=== PATIENT | male | born 1940 | race Caucasian/White ===

== ENCOUNTER → 2016-06-25 | Outpatient (CLI) | payer OTHER ==
[~2016-06-25] MED LIST: ASPEC325 PO; ASPI81TA28 PO; BUME1TAB PO; CARB1TAB59 PO; CLOP1TAB15 PO; CYM60 PO; DICL1GEL28 TOP; DVN/160 PO; FLUT1AER5 INH; LAMO150T32 PO; METO25TA3 PO; MIRA1TAB3 PO; MOMLX PO; MRLP17 PO; NMN10 PO; NXM/40 PO; ONDA4TAB46 PO; PRAV20TA PO; QUET1TAB10 PO; RANO500T PO; RIVA1DIS TOP; RXC5 PO; SNK PO; VALS320T2 PO; VNTHFA/IN INH
--- NOTE | 2016-06-25 10:48 | DIAGNOSTIC IMAGING REPORT ---
DOUBLE CONTRAST UPPER GI SERIES AND SMALL BOWEL FOLLOW-THROUGH CLINICAL HISTORY: Nausea and vomiting. Epigastric abdominal pain. COMPARISON STUDY: Abdominal CT dated 06/20/2014. TECHNIQUE: An abdominal station engineer chief radiograph was performed. A standard air contrast upper GI series was then performed. Spot images of the esophagus and stomach were obtained in multiple obliquities with upright and prone. The patient then consumed several of thin barium and a small follow-through was performed. Overhead radiographs and spot compression images were obtained. FINDINGS: The patient swallowed barium without difficulty. The esophagus is structurally normal without evidence of intrinsic or extrinsic mass. Moderate dysmotility is seen in the mid to distal third of the esophagus. The esophageal mucosal pattern is normal. No gastroesophageal reflux was elicited by having the patient performed a Valsalva maneuver. The gastroesophageal junction distends normally. A small hiatal hernia is noted. The configuration of the proximal stomach suggests previous fundoplication. The stomach shows Normal distensibility. No mass or ulceration is identified. There was no evidence of gastritis. The duodenal bulb and sweep are unremarkable. The abdominal station engineer chief radiograph shows a nonobstructed abdominal bowel gas pattern. Cholecystectomy clips are noted. No abnormal abdominal calcifications are seen. The skeletal structures are osteopenic. Lumbar spinal fusion hardware is observed. On the small bowel follow-through, there is normal transit time with contrast identified in the colon at 45 minutes. The small bowel mucosal pattern is normal. There is no evidence of stricture or mass. The distal/terminal ileum are normal in appearance on the spot compression views. Fluoroscopy time: 3.8 minutes. Fluoroscopic images: 34 IMPRESSION: 1. Esophageal dysmotility. 2. Hiatal hernia. 3. Unremarkable small bowel follow-through. Electronically signed by: Geoffrey Turner M.D. 06/25/2016 10:47 AM Dictated Date/Time: 06/25/2016 10:44 AM
== END | disposition home or self-care (01) ==
LOC: C.RAD 09:04
PROVIDERS: ATTEND Internal Medicine
DX: R11.2 Nausea with vomiting, unspecified (principal); R10.13 Epigastric pain; K22.4 Dyskinesia of esophagus; K44.9 Diaphragmatic hernia without obstruction or gangrene

== ENCOUNTER → 2016-11-28 | Day surgery (SDC) | payer OTHER ==
[2016-11-27 09:21] VITALS: BMI 39.0
[~2016-11-28] VITALS: Ht 177.8 cm; Wt 122.3 kg
[~2016-11-28] MED LIST changes: -ASPEC325 PO; -DICL1GEL28 TOP; +LIDOCAINE HCL 2% 2 ML VIAL (20MG/ML) ONE; -MOMLX PO; -MRLP17 PO; +PHENYLEPHRINE 100MCG/ML 5ML SYR ONE; +PROPOFOL IV EMULSION 10 MG/ML 20 ML VIAL IV ONE; -RXC5 PO; -SNK PO; +SODIUM CHLORIDE 0.9% 500ML 500 ML IV ONE; -VALS320T2 PO
[2016-11-28 12:54] VITALS: Ht 177.8 cm; Wt 122.3 kg
--- NOTE | 2016-11-28 13:42 | Endo History and Physical ---
History & Physical Date of Service: Nov 28, 2016. Chief Complaint: SCREENING Referring Physician: DR. ALBERTO History of Present Illness screening colonoscopy Past Medical History Reflux, Blood Dyscrasias, High Cholesterol, Sleep Apnea, Hypertension, Kidney Disease, CVA/TIA, Depression Past Surgical History Hx Cardiac Surgery: Yes (HEART CATHS, STENTS X2) Hx Internal Defibrillator: No Hx Pacemaker: No Hx Abdominal Surgery: Yes (BETZY FUNDOPLICATION) Hx Post-Op Nausea and Vomiting: No Hx Cancer Surgery: Yes (TUMOR REMOVAL AND BIOPSIES) Hx Thoracic Surgery: No Hx Orthopedic: Yes (LUMBAR FUSION, LT/RT TKA) Hx Urinary Tract Surgery: No Family History None Social History Smoking Status: Never Smoker Hx Substance Use: No Hx Alcohol Use: No Allergies Coded Allergies: Metoclopramide (Verified Allergy, Severe, TONGUE SWELLED, 11/28/16) ANGELO Inhibitors (Verified Allergy, Mild, ITCHY RASH, 11/28/16) Amoxicillin (Verified Allergy, Unknown, RASH, 11/28/16) Clavulanic Acid (Verified Allergy, Unknown, RASH, 11/28/16) Meperidine (Verified Allergy, Unknown, RASH, 11/28/16) Hydromorphone (Verified Adverse Reaction, Intermediate, NAUSEA, 11/28/16) NSAIDs (Verified Adverse Reaction, Intermediate, elevated Creatinine level , 11/28/16) Current Medications Reported Home Medications Medications Dose Route/Sig Max Daily Dose Days Date Category Plavix (Clopidogrel Bisulfate) 75 Mg Tab 75 Mg PO QAM 08/13/16 Reported Exelon (Rivastigmine) 13.3 Mg/24 Hr Dis 1 Dose TOP HS 08/13/16 Reported Ranexa (Ranolazine) 500 Mg Tab 1 Tab PO BID 08/13/16 Reported Zofran (Ondansetron HCl) 4 Mg Tab 4 Mg PO Q6H PRN 08/13/16 Reported Toprol-Xl (Metoprolol Succinate) 25 Mg Tabcr 25 Mg PO QAM 08/13/16 Reported Flovent Diskus (Fluticasone Propionate (Inhala) 100 Mcg/Blist Aer 1 Puffs INH BID PRN 08/13/16 Reported Ventolin Hfa (Albuterol) 200 Puffs/72392 Mcg Aers 1 Puff INH HS 08/13/16 Reported Bumex (Bumetanide) 1 Mg Tab 1 Mg PO QAM 08/13/16 Reported Diovan (Valsartan) 160 Mg Tab 160 Mg PO QAM 08/13/16 Reported Aspirin Ec (Aspirin) 81 Mg Tab 81 Mg PO HS 08/13/16 Reported Seroquel (Quetiapine Fumarate) 200 Mg Tab 200 Mg PO HS 05/30/15 Reported Sinemet Cr 50-200 mg (Carbidopa-Levodopa) 1 Tab Tab 1 Tab PO BID 12/31/14 Reported Myrbetriq Er (Mirabegron) 50 Mg Tab 50 Mg PO QAM 12/31/14 Reported Pravachol (Pravastatin Sodium) 20 Mg Tab 20 Mg PO QPM 07/24/12 Reported Namenda (Memantine) 10 Mg Tab 10 Mg PO BID 10/31/11 Reported Cymbalta * (Duloxetine HCl) 60 Mg Cap 60 Mg PO BID 10/31/11 Reported Lamictal (Lamotrigine) 150 Mg Tab 150 Mg PO BID 10/31/11 Reported Nexium (Esomeprazole Magnesium) 40 Mg Capcr 40 Mg PO BID 10/31/11 Reported Vital Signs Weight (Kilograms): 122.27 Height (Feet): 5 Height (Inches): 10 Date Time Temp Pulse Resp B/P (MAP) Pulse Ox O2 Delivery O2 Flow Rate FiO2 11/28/16 13:00 36.6 80 20 134/74 (94) 94 Room Air Physical Exam AAOx3 Nls1s2 Lungs CTA Abd soft NT/ND + BS - CCE Assessment and Plan colonoscopy - hx polyps
--- NOTE | 2016-11-28 14:23 | Discharge Instructions ---
Endoscopy Patient Instructions Date / Procedure(s) Performed Nov 28, 2016. Colonoscopy Allergy Information Coded Allergies: Metoclopramide (Verified Allergy, Severe, TONGUE SWELLED, 11/28/16) ANGELO Inhibitors (Verified Allergy, Mild, ITCHY RASH, 11/28/16) Amoxicillin (Verified Allergy, Unknown, RASH, 11/28/16) Clavulanic Acid (Verified Allergy, Unknown, RASH, 11/28/16) Meperidine (Verified Allergy, Unknown, RASH, 11/28/16) Hydromorphone (Verified Adverse Reaction, Intermediate, NAUSEA, 11/28/16) NSAIDs (Verified Adverse Reaction, Intermediate, elevated Creatinine level , 11/28/16) Discharge Date / Findings Nov 28, 2016. 1) polyp at 20 cm removed 2)ulcer at cecum- bx 30 diverticula/redundant colon Medication Instructions Stopped Medication(s): STOPPED PLAVIX AND ASA Restart Stopped Medication(s): Reported Home Medications Medications Dose Route/Sig Max Daily Dose Days Date Category Plavix (Clopidogrel Bisulfate) 75 Mg Tab 75 Mg PO QAM 08/13/16 Reported Exelon (Rivastigmine) 13.3 Mg/24 Hr Dis 1 Dose TOP HS 08/13/16 Reported Ranexa (Ranolazine) 500 Mg Tab 1 Tab PO BID 08/13/16 Reported Zofran (Ondansetron HCl) 4 Mg Tab 4 Mg PO Q6H PRN 08/13/16 Reported Toprol-Xl (Metoprolol Succinate) 25 Mg Tabcr 25 Mg PO QAM 08/13/16 Reported Flovent Diskus (Fluticasone Propionate (Inhala) 100 Mcg/Blist Aer 1 Puffs INH BID PRN 08/13/16 Reported Ventolin Hfa (Albuterol) 200 Puffs/08459 Mcg Aers 1 Puff INH HS 08/13/16 Reported Bumex (Bumetanide) 1 Mg Tab 1 Mg PO QAM 08/13/16 Reported Diovan (Valsartan) 160 Mg Tab 160 Mg PO QAM 08/13/16 Reported Aspirin Ec (Aspirin) 81 Mg Tab 81 Mg PO HS 08/13/16 Reported Seroquel (Quetiapine Fumarate) 200 Mg Tab 200 Mg PO HS 05/30/15 Reported Sinemet Cr 50-200 mg (Carbidopa-Levodopa) 1 Tab Tab 1 Tab PO BID 12/31/14 Reported Myrbetriq Er (Mirabegron) 50 Mg Tab 50 Mg PO QAM 12/31/14 Reported Pravachol (Pravastatin Sodium) 20 Mg Tab 20 Mg PO QPM 07/24/12 Reported Namenda (Memantine) 10 Mg Tab 10 Mg PO BID 10/31/11 Reported Cymbalta * (Duloxetine HCl) 60 Mg Cap 60 Mg PO BID 10/31/11 Reported Lamictal (Lamotrigine) 150 Mg Tab 150 Mg PO BID 10/31/11 Reported Nexium (Esomeprazole Magnesium) 40 Mg Capcr 40 Mg PO BID 10/31/11 Reported Reported Home Medications Medications Dose Route/Sig Max Daily Dose Days Date Category Plavix (Clopidogrel Bisulfate) 75 Mg Tab 75 Mg PO QAM 08/13/16 Reported Exelon (Rivastigmine) 13.3 Mg/24 Hr Dis 1 Dose TOP HS 08/13/16 Reported Ranexa (Ranolazine) 500 Mg Tab 1 Tab PO BID 08/13/16 Reported Zofran (Ondansetron HCl) 4 Mg Tab 4 Mg PO Q6H PRN 08/13/16 Reported Toprol-Xl (Metoprolol Succinate) 25 Mg Tabcr 25 Mg PO QAM 08/13/16 Reported Flovent Diskus (Fluticasone Propionate (Inhala) 100 Mcg/Blist Aer 1 Puffs INH BID PRN 08/13/16 Reported Ventolin Hfa (Albuterol) 200 Puffs/65261 Mcg Aers 1 Puff INH HS 08/13/16 Reported Bumex (Bumetanide) 1 Mg Tab 1 Mg PO QAM 08/13/16 Reported Diovan (Valsartan) 160 Mg Tab 160 Mg PO QAM 08/13/16 Reported Aspirin Ec (Aspirin) 81 Mg Tab 81 Mg PO HS 08/13/16 Reported Seroquel (Quetiapine Fumarate) 200 Mg Tab 200 Mg PO HS 05/30/15 Reported Sinemet Cr 50-200 mg (Carbidopa-Levodopa) 1 Tab Tab 1 Tab PO BID 12/31/14 Reported Myrbetriq Er (Mirabegron) 50 Mg Tab 50 Mg PO QAM 12/31/14 Reported Pravachol (Pravastatin Sodium) 20 Mg Tab 20 Mg PO QPM 07/24/12 Reported Namenda (Memantine) 10 Mg Tab 10 Mg PO BID 10/31/11 Reported Cymbalta * (Duloxetine HCl) 60 Mg Cap 60 Mg PO BID 10/31/11 Reported Lamictal (Lamotrigine) 150 Mg Tab 150 Mg PO BID 10/31/11 Reported Nexium (Esomeprazole Magnesium) 40 Mg Capcr 40 Mg PO BID 10/31/11 Reported OK to resume meds Provider Instructions Activity Restrictions - No exercising or heavy lifting for 24 hours. - Do not drink alcohol the day of the procedure. - Do not drive a car or operate machinery until the day after the procedure. - Do not make any important decisions or sign important papers in 24 hours after the procedure. Following Day: - Return to full activity which may include returning to work/school. Diet Start your diet with liquids and light foods (jello, soup, juice, toast). Then eat your usual diet if not nauseated. Treatment For Common After Affects For mild abdominal pain, bloating, or excessive gas: - Rest - Eat lightly - Lie on right side Follow-Up Information Follow-up with DR. ALBERTO as scheduled Anesthesia Information What You Should Know You have had a procedure that required some medicine to reduce anxiety and discomfort. This treatment is called moderate sedation. After receiving the treatment, you may be sleepy, but you will be able to breathe on your own. The effects of the treatment may last for several hours. Follow these instructions along with Activity/Diet recommendations noted above: * Do NOT do anything where dizziness or clumsiness would be dangerous. * Rest quietly at home today, then you can be up and about tomorrow. * Have a responsible person stay with you the rest of today. * You may have had an I.V. today. If so, you may take the dressing off later today. Recommendations Call your doctor if: * Trouble breathing * Continuous vomiting for more than 24 hours * Temperature above 101 degrees * Severe abdominal pain or bloating * Pain not relieved by pain medicine ordered * There is increased drainage or redness from any incision * A large amount of rectal bleeding greater than 2-3 tablespoons. (If you had a polyp/s removed or have hemorrhoids, a small amount of blood - from the rectum is to be expected.) * You have any unanswered questions or concerns. IN THE EVENT OF A SERIOUS EMERGENCY, GO TO THE NEAREST EMERGENCY ROOM Your discharge instructions were prepared by provider Abbe Lo. Patient Instructions Signature Page Bryan Martinez Patient (or Guardian) Signature/Date: I have read and understand the instructions given to me by my caregivers. Caregiver/RN/Doctor Signature/Date: The above-named patient and/or guardian has received patient instructions on this date. + Original Patient Signature Page (only) stays with chart. Please make copy for patient.
--- NOTE | 2016-11-28 14:30 | GI REPORT ---
Procedure Date: 11/28/2016 12:53 PM Procedure: Colonoscopy Indications: High risk colon cancer surveillance: Personal history of colonic polyps. No hx IBD; on ASA/Plavix Medicines: Propofol per Anesthesia Complications: No immediate complications. Estimated blood loss: Minimal. Estimated Blood Loss: Estimated blood loss was minimal. Procedure: Pre-Anesthesia Assessment: - Prior to the procedure, a History and Physical was performed, and patient medications and allergies were reviewed. The patient's tolerance of previous anesthesia was also reviewed. The risks and benefits of the procedure and the sedation options and risks were discussed with the patient. All questions were answered, and informed consent was obtained. Prior Anticoagulants: The patient has taken no previous anticoagulant or antiplatelet agents. ASA Grade Assessment: III - A patient with severe systemic disease. After reviewing the risks and benefits, the patient was deemed in satisfactory condition to undergo the procedure. After I obtained informed consent, the scope was passed under direct vision. Throughout the procedure, the patient's blood pressure, pulse, and oxygen saturations were monitored continuously. The scope was introduced through the anus and advanced to the cecum, identified by appendiceal orifice and ileocecal valve. The colonoscopy was performed without difficulty. The patient tolerated the procedure well. The quality of the bowel preparation was good. Findings: The perianal and digital rectal examinations were normal. Pertinent negatives include normal sphincter tone, no palpable rectal lesions and no anal lesion or abnormality was detected. A 6 mm polyp was found in the rectum. The polyp was sessile. The polyp was removed with a cold snare. Resection and retrieval were complete. Verification of patient identification for the specimen was done by the physician and snow technician using the patient's name and medical record number. A continuous area of nonbleeding ulcerated mucosa with no stigmata of recent bleeding was present in the cecum. Biopsies were taken with a cold forceps for histology. Estimated blood loss was minimal. Verification of patient identification for the specimen was done by the physician and snow technician using the patient's name and medical record number. Multiple small-mouthed diverticula were found in the entire colon. The rectum, descending colon and ascending colon appeared normal. Biopsies were taken with a cold forceps for histology. Estimated blood loss was minimal. Verification of patient identification for the specimen was done by the physician and snow technician using the patient's name and medical record number. The retroflexed view of the distal rectum and anal verge was normal and showed no anal or rectal abnormalities. Impression: - One 6 mm polyp in the rectum, removed with a cold snare. Resected and retrieved. - Mucosal ulceration. Biopsied. - Diverticulosis in the entire examined colon. - The rectum, descending colon and ascending colon are normal. Biopsied. - The distal rectum and anal verge are normal on retroflexion view. Recommendation: - Patient has a contact number available for emergencies. The signs and symptoms of potential delayed complications were discussed with the patient. Return to normal activities tomorrow. Written discharge instructions were provided to the patient. - Resume regular diet. - Resume Plavix (clopidogrel) today at prior dose. - No aspirin, ibuprofen, naproxen, or other non-steroidal anti-inflammatory drugs. - Await pathology results. - Repeat colonoscopy for surveillance based on pathology results. - Return to referring physician as previously scheduled. MD Abbe Billy MD 11/28/2016 2:29:53 PM This report has been signed electronically. Note Initiated On: 11/28/2016 12:53 PM I attest to the content of the Intraoperative Record and orders documented therein, exceptions below
--- NOTE | 2016-11-28 14:46 | Anesthesiology Progress Note ---
Anesthesia Post Op Note Date & Time Nov 28, 2016 at 14:46 Vital Signs Pain Intensity: 0 Vital Signs Past 12 Hours Date Time Temp Pulse Resp B/P (MAP) Pulse Ox O2 Delivery O2 Flow Rate FiO2 11/28/16 14:44 73 20 139/79 (99) 99 Room Air 11/28/16 14:29 72 20 120/63 (82) 99 Room Air 11/28/16 13:00 36.6 80 20 134/74 (94) 94 Room Air Notes Mental Status: alert / awake / arousable, participated in evaluation Pt Amnestic to Procedure: Yes Nausea / Vomiting: adequately controlled Pain: adequately controlled Airway Patency, RR, SpO2: stable & adequate BP & HR: stable & adequate Hydration State: stable & adequate Anesthetic Complications: no major complications apparent
[2016-11-28 14:59] VITALS: BP 150/82; PULSE 71; O2SAT 98
== END | disposition home or self-care (01) ==
LOC: C.GI 12:21
PROVIDERS: ATTEND Internal Medicine Gastroenterology
DX: Z12.11 Encounter for screening for malignant neoplasm of colon (principal); D12.2 Benign neoplasm of ascending colon; D12.8 Benign neoplasm of rectum; K55.039 Acute (reversible) ischemia of large intestine, extent unspecified; K57.30 Diverticulosis of large intestine without perforation or abscess without bleeding; N28.9 Disorder of kidney and ureter, unspecified; K21.9 Gastro-esophageal reflux disease without esophagitis; D75.9 Disease of blood and blood-forming organs, unspecified; E78.00 Pure hypercholesterolemia, unspecified; G47.39 Other sleep apnea; I12.9 Hypertensive chronic kidney disease with stage 1 through stage 4 chronic kidney disease, or unspecified chronic kidney disease; F32.9 Major depressive disorder, single episode, unspecified; Z86.73 Personal history of transient ischemic attack (TIA), and cerebral infarction without residual deficits; Z79.02 Long term (current) use of antithrombotics/antiplatelets; Z79.82 Long term (current) use of aspirin; Z79.899 Other long term (current) drug therapy; Z86.010 Personal history of colon polyps

== ENCOUNTER → 2017-08-18 | Day surgery (SDC) | payer OTHER ==
[2017-07-25 09:40] VITALS: BMI 42.0
[2017-08-13 13:28] VITALS: Ht 175.3 cm; Wt 126.4 kg
[~2017-08-18] VITALS: Ht 175.3 cm; Wt 126.4 kg
[~2017-08-18] MED LIST changes: -CARB1TAB59 PO; +CARB25TA PO; -CYM60 PO; +DULO60CA44 PO; -DVN/160 PO; +LAMO150T PO; -LAMO150T32 PO; +NTRSL3 UT; -PHENYLEPHRINE 100MCG/ML 5ML SYR ONE; -PROPOFOL IV EMULSION 10 MG/ML 20 ML VIAL IV ONE; +PROPOFOL IV EMULSION 10 MG/ML 20 ML VIAL ONE
--- NOTE | 2017-08-18 14:39 | Endo History and Physical ---
History & Physical Date of Service: Aug 18, 2017. Chief Complaint: Reported Home Medications Medications Dose Route/Sig Max Daily Dose Days Date Category Cymbalta (Duloxetine Hcl) 60 Mg Cap 60 Mg PO BID 06/11/17 Reported Sinemet Cr 25MG/100MG (Carbidopa-Levodopa) 1 Tab Tab 1 Tab PO QID 06/11/17 Reported Plavix (Clopidogrel Bisulfate) 75 Mg Tab 75 Mg PO QAM 08/13/16 Reported Exelon (Rivastigmine) 13.3 Mg/24 Hr Dis 1 Dose TOP HS 08/13/16 Reported Ranexa (Ranolazine) 500 Mg Tab 1 Tab PO BID 08/13/16 Reported Zofran (Ondansetron HCl) 4 Mg Tab 4 Mg PO Q6H PRN 08/13/16 Reported Toprol-Xl (Metoprolol Succinate) 25 Mg Tabcr 25 Mg PO QAM 08/13/16 Reported Flovent Diskus (Fluticasone Propionate (Inhala) 100 Mcg/Blist Aer 1 Puffs INH BID PRN 08/13/16 Reported Ventolin Hfa (Albuterol) 200 Puffs/27178 Mcg Aers 1 Puff INH HS 08/13/16 Reported Bumex (Bumetanide) 1 Mg Tab 1 Mg PO QAM 08/13/16 Reported Aspirin Ec (Aspirin) 81 Mg Tab 81 Mg PO HS 08/13/16 Reported Seroquel (Quetiapine Fumarate) 200 Mg Tab 200 Mg PO HS 05/30/15 Reported Myrbetriq Er (Mirabegron) 50 Mg Tab 50 Mg PO QAM 12/31/14 Reported Pravachol (Pravastatin Sodium) 20 Mg Tab 20 Mg PO QPM 07/24/12 Reported Namenda (Memantine) 10 Mg Tab 10 Mg PO BID 10/31/11 Reported Lamictal (Lamotrigine) 150 Mg Tab 150 Mg PO BID 10/31/11 Reported Nexium (Esomeprazole Magnesium) 40 Mg Capcr 40 Mg PO BID 10/31/11 Reported Referring Physician: History of Present Illness hx polyp Past Medical History Reflux, Blood Dyscrasias, High Cholesterol, Sleep Apnea, Hypertension, Kidney Disease, CVA/TIA, Depression Past Surgical History Hx Cardiac Surgery: Yes (HEART CATHS/STENTS X 2) Hx Internal Defibrillator: No Hx Pacemaker: No Hx Abdominal Surgery: Yes (BETZY FUNDOPLICATION) Hx of Implantable Prosthesis: No Hx Post-Op Nausea and Vomiting: No Hx Cancer Surgery: Yes (TUMOR REMOVAL AND BIOPSIES) Hx Thoracic Surgery: No Hx Orthopedic: Yes (LUMBAR FUSION, LEFT/RT TKA) Hx Urinary Tract Surgery: No Family History None Social History Smoking Status: Never Smoker Hx Substance Use: No Hx Alcohol Use: No Allergies Coded Allergies: Metoclopramide (Verified Allergy, Severe, TONGUE SWELLED, 07/25/17) ANGELO Inhibitors (Verified Allergy, Mild, ITCHY RASH, 07/25/17) Amoxicillin (Verified Allergy, Unknown, RASH, 07/25/17) Clavulanic Acid (Verified Allergy, Unknown, RASH, 07/25/17) Meperidine (Verified Allergy, Unknown, RASH, 07/25/17) Hydromorphone (Verified Adverse Reaction, Intermediate, NAUSEA, 07/25/17) NSAIDs (Verified Adverse Reaction, Intermediate, elevated Creatinine level , 07/25/17) Current Medications Reported Home Medications Medications Dose Route/Sig Max Daily Dose Days Date Category Cymbalta (Duloxetine Hcl) 60 Mg Cap 60 Mg PO BID 06/11/17 Reported Sinemet Cr 25MG/100MG (Carbidopa-Levodopa) 1 Tab Tab 1 Tab PO QID 06/11/17 Reported Plavix (Clopidogrel Bisulfate) 75 Mg Tab 75 Mg PO QAM 08/13/16 Reported Exelon (Rivastigmine) 13.3 Mg/24 Hr Dis 1 Dose TOP HS 08/13/16 Reported Ranexa (Ranolazine) 500 Mg Tab 1 Tab PO BID 08/13/16 Reported Zofran (Ondansetron HCl) 4 Mg Tab 4 Mg PO Q6H PRN 08/13/16 Reported Toprol-Xl (Metoprolol Succinate) 25 Mg Tabcr 25 Mg PO QAM 08/13/16 Reported Flovent Diskus (Fluticasone Propionate (Inhala) 100 Mcg/Blist Aer 1 Puffs INH BID PRN 08/13/16 Reported Ventolin Hfa (Albuterol) 200 Puffs/03303 Mcg Aers 1 Puff INH HS 08/13/16 Reported Bumex (Bumetanide) 1 Mg Tab 1 Mg PO QAM 08/13/16 Reported Aspirin Ec (Aspirin) 81 Mg Tab 81 Mg PO HS 08/13/16 Reported Seroquel (Quetiapine Fumarate) 200 Mg Tab 200 Mg PO HS 05/30/15 Reported Myrbetriq Er (Mirabegron) 50 Mg Tab 50 Mg PO QAM 12/31/14 Reported Pravachol (Pravastatin Sodium) 20 Mg Tab 20 Mg PO QPM 07/24/12 Reported Namenda (Memantine) 10 Mg Tab 10 Mg PO BID 10/31/11 Reported Lamictal (Lamotrigine) 150 Mg Tab 150 Mg PO BID 10/31/11 Reported Nexium (Esomeprazole Magnesium) 40 Mg Capcr 40 Mg PO BID 10/31/11 Reported Vital Signs Weight (Kilograms): 126.36 Height (Feet): 5 Height (Inches): 9 Physical Exam General Appearance: WD/WN, no apparent distress Respiratory/Chest: Auscultation: breath sounds normal Cardiovascular: Heart Auscultation: RRR Abdomen: Bowel Sounds: normal Inspection & Palpation: soft, non-distended, no tenderness, guarding & rebound Assessment and Plan colonoscopy today
--- NOTE | 2017-08-18 15:44 | Discharge Instructions ---
Endoscopy Patient Instructions Date / Procedure(s) Performed Aug 18, 2017. Colonoscopy Allergy Information Coded Allergies: Metoclopramide (Verified Allergy, Severe, TONGUE SWELLED, 08/18/17) ANGELO Inhibitors (Verified Allergy, Mild, ITCHY RASH, 08/18/17) Amoxicillin (Verified Allergy, Unknown, RASH, 08/18/17) Clavulanic Acid (Verified Allergy, Unknown, RASH, 08/18/17) Meperidine (Verified Allergy, Unknown, RASH, 08/18/17) Hydromorphone (Verified Adverse Reaction, Intermediate, NAUSEA, 08/18/17) NSAIDs (Verified Adverse Reaction, Intermediate, elevated Creatinine level , 08/18/17) Discharge Date / Findings Aug 18, 2017. diverticulosis Medication Instructions Stopped Medication(s): Last dose Plavix 08/13/17. Restart Stopped Medication(s): Reported Home Medications Medications Dose Route/Sig Max Daily Dose Days Date Category Nitrostat (Nitroglycerin) 0.3 Mg Tab 0.3 Mg UT PRN 08/18/17 Reported Cymbalta (Duloxetine Hcl) 60 Mg Cap 60 Mg PO BID 06/11/17 Reported Sinemet Cr 25MG/100MG (Carbidopa-Levodopa) 1 Tab Tab 1 Tab PO QID 06/11/17 Reported Plavix (Clopidogrel Bisulfate) 75 Mg Tab 75 Mg PO QAM 08/13/16 Reported Exelon (Rivastigmine) 13.3 Mg/24 Hr Dis 1 Dose TOP HS 08/13/16 Reported Ranexa (Ranolazine) 500 Mg Tab 1 Tab PO BID 08/13/16 Reported Zofran (Ondansetron HCl) 4 Mg Tab 4 Mg PO Q6H PRN 08/13/16 Reported Toprol-Xl (Metoprolol Succinate) 25 Mg Tabcr 25 Mg PO QAM 08/13/16 Reported Flovent Diskus (Fluticasone Propionate (Inhala) 100 Mcg/Blist Aer 1 Puffs INH BID PRN 08/13/16 Reported Ventolin Hfa (Albuterol) 200 Puffs/47243 Mcg Aers 1 Puff INH HS 08/13/16 Reported Bumex (Bumetanide) 1 Mg Tab 1 Mg PO QAM 08/13/16 Reported Aspirin Ec (Aspirin) 81 Mg Tab 81 Mg PO HS 08/13/16 Reported Seroquel (Quetiapine Fumarate) 200 Mg Tab 200 Mg PO HS 05/30/15 Reported Myrbetriq Er (Mirabegron) 50 Mg Tab 50 Mg PO QAM 12/31/14 Reported Pravachol (Pravastatin Sodium) 20 Mg Tab 20 Mg PO QPM 07/24/12 Reported Namenda (Memantine) 10 Mg Tab 10 Mg PO BID 10/31/11 Reported Lamictal (Lamotrigine) 150 Mg Tab 150 Mg PO BID 10/31/11 Reported Nexium (Esomeprazole Magnesium) 40 Mg Capcr 40 Mg PO BID 10/31/11 Reported Reported Home Medications Medications Dose Route/Sig Max Daily Dose Days Date Category Nitrostat (Nitroglycerin) 0.3 Mg Tab 0.3 Mg UT PRN 08/18/17 Reported Cymbalta (Duloxetine Hcl) 60 Mg Cap 60 Mg PO BID 06/11/17 Reported Sinemet Cr 25MG/100MG (Carbidopa-Levodopa) 1 Tab Tab 1 Tab PO QID 06/11/17 Reported Plavix (Clopidogrel Bisulfate) 75 Mg Tab 75 Mg PO QAM 08/13/16 Reported Exelon (Rivastigmine) 13.3 Mg/24 Hr Dis 1 Dose TOP HS 08/13/16 Reported Ranexa (Ranolazine) 500 Mg Tab 1 Tab PO BID 08/13/16 Reported Zofran (Ondansetron HCl) 4 Mg Tab 4 Mg PO Q6H PRN 08/13/16 Reported Toprol-Xl (Metoprolol Succinate) 25 Mg Tabcr 25 Mg PO QAM 08/13/16 Reported Flovent Diskus (Fluticasone Propionate (Inhala) 100 Mcg/Blist Aer 1 Puffs INH BID PRN 08/13/16 Reported Ventolin Hfa (Albuterol) 200 Puffs/99833 Mcg Aers 1 Puff INH HS 08/13/16 Reported Bumex (Bumetanide) 1 Mg Tab 1 Mg PO QAM 08/13/16 Reported Aspirin Ec (Aspirin) 81 Mg Tab 81 Mg PO HS 08/13/16 Reported Seroquel (Quetiapine Fumarate) 200 Mg Tab 200 Mg PO HS 05/30/15 Reported Myrbetriq Er (Mirabegron) 50 Mg Tab 50 Mg PO QAM 12/31/14 Reported Pravachol (Pravastatin Sodium) 20 Mg Tab 20 Mg PO QPM 07/24/12 Reported Namenda (Memantine) 10 Mg Tab 10 Mg PO BID 10/31/11 Reported Lamictal (Lamotrigine) 150 Mg Tab 150 Mg PO BID 10/31/11 Reported Nexium (Esomeprazole Magnesium) 40 Mg Capcr 40 Mg PO BID 10/31/11 Reported Provider Instructions Activity Restrictions - No exercising or heavy lifting for 24 hours. - Do not drink alcohol the day of the procedure. - Do not drive a car or operate machinery until the day after the procedure. - Do not make any important decisions or sign important papers in 24 hours after the procedure. Following Day: - Return to full activity which may include returning to work/school. Diet Start your diet with liquids and light foods (jello, soup, juice, toast). Then eat your usual diet if not nauseated. Treatment For Common After Affects For mild abdominal pain, bloating, or excessive gas: - Rest - Eat lightly - Lie on right side Follow-Up Information Follow-up with Dr. Velasquez as scheduled Anesthesia Information What You Should Know You have had a procedure that required some medicine to reduce anxiety and discomfort. This treatment is called moderate sedation. After receiving the treatment, you may be sleepy, but you will be able to breathe on your own. The effects of the treatment may last for several hours. Follow these instructions along with Activity/Diet recommendations noted above: * Do NOT do anything where dizziness or clumsiness would be dangerous. * Rest quietly at home today, then you can be up and about tomorrow. * Have a responsible person stay with you the rest of today. * You may have had an I.V. today. If so, you may take the dressing off later today. Recommendations Call your doctor if: * Trouble breathing * Continuous vomiting for more than 24 hours * Temperature above 101 degrees * Severe abdominal pain or bloating * Pain not relieved by pain medicine ordered * There is increased drainage or redness from any incision * A large amount of rectal bleeding greater than 2-3 tablespoons. (If you had a polyp/s removed or have hemorrhoids, a small amount of blood - from the rectum is to be expected.) * You have any unanswered questions or concerns. IN THE EVENT OF A SERIOUS EMERGENCY, GO TO THE NEAREST EMERGENCY ROOM Your discharge instructions were prepared by provider Abbe Lo. Patient Instructions Signature Page Bryan Martinez Patient (or Guardian) Signature/Date: I have read and understand the instructions given to me by my caregivers. Caregiver/RN/Doctor Signature/Date: The above-named patient and/or guardian has received patient instructions on this date. + Original Patient Signature Page (only) stays with chart. Please make copy for patient.
--- NOTE | 2017-08-18 15:47 | GI REPORT ---
Patient Name: Bryan Martinez Procedure Date: 08/18/2017 3:09 PM Date of : 1940 Admit Type: Outpatient Age: 77 Gender: Male Attending MD: Abbe Lo MD Procedure: Colonoscopy Providers: Abbe Lo MD Referring MD: Kristi Velasquez Indications: Hematochezia Medicines: Propofol per Anesthesia Complications: No immediate complications. Estimated blood loss: None. Estimated Blood Loss: Estimated blood loss: none. Procedure: Pre-Anesthesia Assessment: - Prior to the procedure, a History and Physical was performed, and patient medications and allergies were reviewed. The patient's tolerance of previous anesthesia was also reviewed. The risks and benefits of the procedure and the sedation options and risks were discussed with the patient. All questions were answered, and informed consent was obtained. Prior Anticoagulants: The patient has taken no previous anticoagulant or antiplatelet agents. ASA Grade Assessment: III - A patient with severe systemic disease. After reviewing the risks and benefits, the patient was deemed in satisfactory condition to undergo the procedure. After I obtained informed consent, the scope was passed under direct vision. Throughout the procedure, the patient's blood pressure, pulse, and oxygen saturations were monitored continuously. The scope was introduced through the anus and advanced to the cecum, identified by appendiceal orifice and ileocecal valve. The colonoscopy was performed without difficulty. The patient tolerated the procedure well. The quality of the bowel preparation was fair. Findings: The perianal and digital rectal examinations were normal. Pertinent negatives include normal sphincter tone, no palpable rectal lesions and no anal lesion or abnormality was detected. Many small-mouthed diverticula were found in the sigmoid colon. The exam was otherwise without abnormality. The retroflexed view of the distal rectum and anal verge was normal and showed no anal or rectal abnormalities. Impression: - Preparation of the colon was fair. - Diverticulosis in the sigmoid colon. - The examination was otherwise normal. - The distal rectum and anal verge are normal on retroflexion view. - No specimens collected. Recommendation: - Discharge patient to home (ambulatory). - Resume regular diet. - Continue present medications. - Repeat colonoscopy in 5 years for surveillance. - Return to referring physician as previously scheduled. MD Abbe Billy MD 08/18/2017 3:46:31 PM This report has been signed electronically. Note Initiated On: 08/18/2017 3:09 PM Number of Addenda: 0 I attest to the content of the Intraoperative Record and orders documented therein, exceptions below {[id number]}
--- NOTE | 2017-08-18 16:04 | Anesthesiology Progress Note ---
Anesthesia Post Op Note Date & Time Aug 18, 2017 at 16:04 Vital Signs Pain Intensity: 0 Vital Signs Past 12 Hours Date Time Temp Pulse Resp B/P (MAP) Pulse Ox O2 Delivery O2 Flow Rate FiO2 08/18/17 15:46 73 20 108/50 (69) 96 Room Air 08/18/17 14:46 36.8 79 20 174/82 (112) 95 Room Air Notes Mental Status: alert / awake / arousable, participated in evaluation Pt Amnestic to Procedure: Yes Nausea / Vomiting: adequately controlled Pain: adequately controlled Airway Patency, RR, SpO2: stable & adequate BP & HR: stable & adequate Hydration State: stable & adequate Anesthetic Complications: no major complications apparent
[2017-08-18 16:16] VITALS: BP 118/64; PULSE 71; O2SAT 97
== END | disposition home or self-care (01) ==
LOC: C.GI 14:24
PROVIDERS: ATTEND Internal Medicine Gastroenterology
DX: K55.9 Vascular disorder of intestine, unspecified (principal); G47.33 Obstructive sleep apnea (adult) (pediatric); E78.5 Hyperlipidemia, unspecified; N18.9 Chronic kidney disease, unspecified; F32.9 Major depressive disorder, single episode, unspecified; K57.30 Diverticulosis of large intestine without perforation or abscess without bleeding; Z88.0 Allergy status to penicillin; Z86.73 Personal history of transient ischemic attack (TIA), and cerebral infarction without residual deficits; Z96.651 Presence of right artificial knee joint; Z96.652 Presence of left artificial knee joint; Z98.1 Arthrodesis status